=== PATIENT | female | born 1950 | race Caucasian/White ===

== ENCOUNTER → 2016-12-30 | Outpatient (CLI) | payer BC ==
[~2016-12-30] MED LIST: ASCO500T16 PO; BND25 PO; CALC600T37; CLR10 PO; DOXY100T; DVN80125; GLUC500C4; MULTTAB58 PO; RANI300T2 PO; TRAM37.52 PO
--- NOTE | 2016-12-31 06:10 | PAP/PSG TECHNICIAN REPORT ---
[facility] Home Weatherizing Worker Polysomnogram Report Study name: None Report date: 12/31/2016 Study date: 12/30/2016 Referring Physician: DR. Minoo MILNER Name: JOSÉ MANUEL WALKER Interpreting Physician: Efrain Antoine M.D. Date of : 1950 Home Weatherizing Worker: Caroline Mancuso RPSGT. Sex: Female Age: 66 Study Type: PSG Weight: 211 lbs Height: 66 years, Height 5' 5" BMI: 35.11 Medications: VALSARTAN-HCTZ 320/25 MG, LORATADINE 10 MG, VIT C, SELENIUM 200 MCG, CENTRUM SILVER, RANITIDINE 150 MG, BENEDRYL, TRIAMCINOLONE ACETONIDE 0.1% Patient History 66 yr-old female here for a baseline/split study. She has had previous sleep testing. She was found to be positive for PERLA and was placed on CPAP treatment. She then experienced weight loss and stopped using the CPAP machine. She has since then gained weight back and is experiencing snoring, insomnia, and frequent awakenings. Her [place] scale is 2. The test was started on room air. ETCO2 testing was not utilized during this study. Room 1 Parameters Monitored NPSG: E1-M2, E2-M1, Fp1-M2, Fp2-M1, F3-M2, F4-M2, F4-M1, C3-M2, C4-M2, C4-M1, O1-M2, O2-M2, O2-M1, T3-M2, T4-M1, P3-M2, P4-M1, CHIN1, CHIN2, HR, EKG, Legs, PFLOW, SNOR, FLOW, CFLOW, Tidal Volume, THOR, ABDO, SpO2, PLTH, CPRESS, ETCO2 Wave, ETCO2, pH Sleep Architecture Sleep Stages Time at Lights Off 10:46:11 PM STAGES Time (min.) TST (%) Time at Lights On 5:36:11 AM Wake 107.5 -- Total Recording Time (TRT) 410.00 min. N1 69.0 23 Total Sleep Period (TSP) 364.5 min. N2 158.5 52 Total Sleep Time (TST) 302.5min. N3 39.5 13 Awake Time 107.5 min. REM 35.5 12 Wake after Sleep Onset 62.0 min. Sleep Efficiency (SE) 74 % Sleep Onset Latency (LUZ) 45.5 min. Number of Stage 1 Shifts None Awakenings 42 Stage Changes 128 Number of REM periods 1 REM 35.5 12 REM Latency 302.0 min. NREM 267.0 88 Body Position Analysis Supine Right Left Side Prone Vertical Total Sleep Time (min.) 51.6 119.8 172.7 292.50 0.0 0.0 Total Sleep Time (%) 3% 40% 57% 97 0% N/A% Total Sleep Time REM (min.) 0.0 0.0 35.5 None 0.0 0.0 Total Sleep Time NREM (min.) 10.0 119.8 137.2 None 0.0 0.0 Intermittent Wake (min.) 41.6 28.9 37.0 None 0.0 0.0 Total Sleep Period (%) 4% None None None None None Arousals Myoclonus (PLM) * Events Count Index Events Count Index Spontaneous 87 17 Events Awake (PLMW) 70 39.1 Respiratory 34 7.9 Events Asleep w/ Arousal (PLMA) 1 0.2 PLM 1 0 Events Asleep w/o Arousal (PLMS) 21 4.2 Snoring 15 3 Total Asleep 22 4.4 Total 137 27 Total 92 13 Respiratory Analysis * CA OA MA CH H RERA Total Count 0 7 0 0 61 4 68 Index 0.0 1.4 0.0 0 12.1 1 14.3 Mean Duration 0.0 15.3 0.0 0.00 16.2 17.9 16.2 Longest Duration 0.0 22.3 0.0 0.00 0.0 20.1 32.1 Respiratory Event Summary Total Supine ~Supine Right Left Prone REM NREM Apneas Count 7 3 4 1 3 N/A 0 7 Index 1.4 18 1 0.5 1.0 N/A 0 2 Hypopneas (4% Desat) Count 61 1 60 19 41 N/A 7 54 Index 12.1 6.0 12 9.5 14.2 N/A 11.8 12.1 Apneas & All Hypopneas Count 68 4 64 20 44 N/A 7 61 Index 13.5 24 13 10 15 N/A 11.8 13.7 Respiratory Events ([employer]+All Hyp+RERA) Count 68 5 67 20 47 N/A 7 61 Index 14.3 30 14 10.0 16.3 N/A 13.5 14.4 Respiratory Related Arousal Count 34 5 35 14 21 N/A 1 39 Index 7.9 30 7 7 7 N/A 2 9 Snoring Analysis Supine Right Left Prone REM NREM Total Snore duration 47.4 min Snores count 41 415 1,058 N/A 303 1,211 1,514 Snore mean duration 1.9 Sec Snores index 246 208 367 N/A 512.1 272.1 300.3 TST with snoring (%) 15.7% Desaturation Event Summary: Minimum %SpO2 Event Count Mean/Min/Max Duration(sec.) Desaturation Index % Time In Bed > 90 115 23.6 / 6.5 / 59.5 17.4 98.1 86 - 90 1 11.0 / 11.0 / 11.0 8.3 1.8 81 - 85 1 19.0 / 19.0 / 19.0 271.7 0.1 76 - 80 0 N/A 0.0 0.0 71 - 75 1 19.0 / 19.0 / 19.0 351.2 0.0 66 - 70 0 N/A 0.0 0.0 61 - 65 0 N/A 0.0 0.0 56 - 60 0 N/A 0.0 0.0 51 - 55 0 N/A 0.0 0.0 < 50 0 N/A 0.0 0.0 Total REM NREM Awake <50% 0.0 min. 0.0 min. 0.0 min. 0.0 min. 51 - 60% 0.0 min. 0.0 min. 0.0 min. 0.0 min. 61 - 70% 0.0 min. 0.0 min. 0.0 min. 0.0 min. 71 - 80% 0.2 min. 0.0 min. 0.0 min. 0.2 min. 81 - 90% 7.4 min. 0.7 min. 4.2 min. 2.5 min. 91 - 100% 397.3 min. 34.8 min. 262.8 min. 99.7 min. Average 94 95 94 94 Minimum SpO2 75 84 88 75 Desaturation Event Index 17.0 13.5 16.4 23.4 # Desat. Events below 89% 8 1 4 3 Time(%) with Saturation below 89% 0.3 0.1 0.1 0.2 Time(min.) with Saturation below 89% 1.3 0.4 0.3 0.6 Time (mins) REM (mins) NREM (mins) % of TST SpO2 Below 90% 33 1 N32 0.6 SpO2 Below 88% 1 0 0 0 Heart Rate Analysis Min (bpm) Max (bpm) Average (bpm) Awake 52 86 70 NREM 51 82 63 REM 50 67 57 Overall 50 82 62 Supplemental O2 Values Minimum O2 level: None Value Start Time End Time Home Weatherizing Worker Comments Ms. Walker slept in the right, left, and supine positions. No cardiac arrhythmias or PLMs were noted. No bruxism noted. Snoring was noted and scored as a 3 on a scale of 1 through 5. (0=no snoring, 5=snoring loud enough to be heard through a closed door or down the gross way) She did not meet specific Split-Night criteria during the diagnostic portion of this study. She awoke to use the restroom one time during the night. Ms. Walker stated that she slept poorly. The final report will be interpreted and signed by a sleep physician. The completed physician report will then be placed in the patient medical record. Therapy (cm H2O) 0 TIB (min.) 410.0 TST (min.) 302.5 Sleep Onset (min.) 45.5 REM Onset From Sleep (min.) 302.0 Sleep Efficiency % 74 Wakefulness (%) 26 Wakefulness (min.) 107.5 NREM 1 (%) 23 NREM 1 (min.) 69.0 NREM 2 (%) 52 NREM 2 (min.) 158.5 NREM 3 (%) 13 NREM 3 (min.) 39.5 REM (%) 12 REM (min.) 35.5 # Arousals 137 Arousal Index 27 # Snore 1,514 Snore Index 300.3 AHI 13.5 AHI Supine 24 AHI Non-Supine 13 NREM AHI 13.7 REM AHI 11.8 RDI 14.3 # Obstructive Apnea 7 # Central Apnea 0 # Mixed Apnea 0 # Hypopneas 61 RERAs 4 Total Respiratory Events 72 Time Below SpO2 89% (min.) 0.7 Mean NREM SpO2 (%) 94 Mean REM SpO2 (%) 95 Mean Sleep SpO2 (%) 94 Min NREM SpO2 (%) 88 Min REM SpO2 (%) 84 Position Supine (min.) 51.6 Position Non-supine (min.) 292.5 LM Index Sleep 4.4 LM Index NREM 4.9 LM Index REM 0.0 Mean Heart Rate (bpm) 62 Min Heart Rate (bpm) 50
--- NOTE | 2017-01-03 22:49 | POLYSOMNOGRAPH REPORT ---
CLINICAL DATA: A 66-year-old female with a BMI of 35.11, referred by Dr. Vaughn Mac for a possible split night study. She had a previous sleep study which showed sleep apnea and she was on CPAP. She then experienced weight loss and stopped using the CPAP. She has now gained some weight back and is having snoring, insomnia and frequent awakenings. SLEEP ARCHITECTURE: Total sleep period was 364.5 minutes. Total sleep time was 302.5 minutes, divided between 267 minutes of non-REM sleep and 35.5 minutes of REM sleep. Sleep onset latency was delayed at 45.5 minutes. REM latency was markedly delayed at 302 minutes. Sleep efficiency was 74%. Wake after sleep onset was 62 minutes. Sleep consisted of stage N1 23%, N2 53%, N3 13%, REM 12%. AROUSAL DATA: 137 arousals were recorded for an index of 27 per hour. PLM DATA: 22 limb movements during sleep were noted for an index of 4.4 per hour with arousal index of 0.2 per hour. RESPIRATORY DATA: Mild sleep apnea/hypopnea was noted. The AHI was 13.5. There were 7 obstructive apneic episodes. The longest duration of apnea was 22.3 seconds. There were 61 hypopneic episodes. The mean duration of hypopnea was 16.2 seconds. OXIMETRY DATA: Mild nocturnal hypoxemia was seen. The oxygen arnoldo was 84%. Mean saturation 94%. Time below 88% was 1 minute HEART RATE DATA: Heart rates ranged from 51-82 beats per minute. No arrhythmia was noted. COMFORT FILLER'S COMMENTS: The patient slept in the right, left, and supine positions. Snoring was moderate, rated 3 on a scale of 1-5. She did not meet split night criteria during the diagnostic portion of the study. IMPRESSION: Obstructive sleep apnea/hypopnea with an AHI of 13.5 with transient nocturnal hypoxemia. RECOMMENDATIONS: The patient may benefit from the use of CPAP or the use of an oral appliance. Clinical correlation is needed. LEXIS
== END | disposition home or self-care (01) ==
LOC: C.NEUR 21:00
PROVIDERS: ATTEND Internal Medicine
DX: G47.33 Obstructive sleep apnea (adult) (pediatric) (principal)

== ENCOUNTER → 2017-03-02 | Outpatient (CLI) | payer BC ==
[~2017-03-02] MED LIST changes: -BND25 PO; +DIPH25CA5 PO
== END | disposition home or self-care (01) ==
LOC: C.PAPS 14:48
PROVIDERS: ATTEND Physician Assistant
DX: Z01.419 Encounter for gynecological examination (general) (routine) without abnormal findings (principal)

== ENCOUNTER → 2017-03-19 | Outpatient (CLI) | payer BC ==
[2017-03-19 17:21] LABS: LYME DISEASE AB IGG NEG (NEG); LYME DISEASE AB IGM NEG (NEG)
== END | disposition home or self-care (01) ==
LOC: C.LABPBG 13:23
PROVIDERS: ATTEND Physician Assistant
DX: S40.261A Insect bite (nonvenomous) of right shoulder, initial encounter (principal); W57.XXXA Bitten or stung by nonvenomous insect and other nonvenomous arthropods, initial encounter

== ENCOUNTER → 2017-07-13 | Outpatient (CLI) | payer BC ==
[~2017-07-13] VITALS: Ht 160 cm; Wt 99.7 kg
[~2017-07-13] MED LIST changes: +BND25 PO; -DIPH25CA5 PO
[2017-07-13 12:41] VITALS: BP 130/83; PULSE 77; Ht 160 cm; Wt 99.7 kg
== END | disposition home or self-care (01) ==
LOC: C.NEUR 12:00
PROVIDERS: ATTEND Internal Medicine Pulmonary Disease
DX: G47.33 Obstructive sleep apnea (adult) (pediatric) (principal); G47.50 Parasomnia, unspecified

== ENCOUNTER → 2017-09-28 | Outpatient (CLI) | payer OTHER ==
[~2017-09-28] VITALS: Ht 160 cm; Wt 97.1 kg
[~2017-09-28] MED LIST changes: -BND25 PO; +DIPH25CA5 PO
[2017-09-28 15:14] VITALS: BP 122/73; PULSE 86; Ht 160 cm; Wt 97.1 kg
== END | disposition home or self-care (01) ==
LOC: C.NEUR 13:18
PROVIDERS: ATTEND Physician Assistant Medical
DX: G47.33 Obstructive sleep apnea (adult) (pediatric) (principal); G47.50 Parasomnia, unspecified

== ENCOUNTER → 2017-11-12 | Outpatient (CLI) | payer OTHER ==
[2017-11-12 16:58] LABS: BASO % 0.8 %; BASO ABS # 0.04 K/uL (0-0.2); EOS % 2.3 %; EOS ABS # 0.12 K/uL (0-0.5); HEMATOCRIT 41.6 % (37-47); HEMOGLOBIN 14.3 g/dL (12.0-16.0); IG# 0.01 K/uL (0.00-0.02); LYMPH % 36.8 %; LYMPH ABS # 1.93 K/uL (1.2-3.4); MEAN CELL VOLUME 91.2 fL (80-100); MEAN CORPUSCULAR HEMOGLOBIN 31.4 pg (25-34); MEAN CORPUSCULAR HGB CONC 34.4 g/dl (32-36); MEAN PLATELET VOLUME 12.5 fL (7.4-10.4); MONO % 6.3 %; MONO ABS # 0.33 K/uL (0.11-0.59); NEUT % 53.6 %; NEUT ABS # 2.82 K/uL (1.4-6.5); PLATELET COUNT 147 K/uL (130-400); RED CELL DISTRIBUTION WIDTH CV 13.2 % (11.5-14.5); RED CELL DISTRIBUTION WIDTH SD 43.6 fL (36.4-46.3); WHITE BLOOD COUNT 5.25 K/uL (4.8-10.8)
[2017-11-12 17:17] LABS: ALBUMIN 3.6 gm/dl (3.4-5.0); ALT/SGPT 17 U/L (12-78); BLOOD UREA NITROGEN 25 mg/dl (7-18); CALCIUM 9.1 mg/dl (8.5-10.1); CARBON DIOXIDE 26 mmol/L (21-32); CHOLESTEROL 230 mg/dl (0-200); CREATININE 0.88 mg/dl (0.60-1.20); GLUCOSE 91 mg/dl (70-99); POTASSIUM 3.9 mmol/L (3.5-5.1); SODIUM 137 mmol/L (136-145)
[2017-11-12 17:27] LABS: ALKALINE PHOSPHATASE 47 U/L (45-117); AST/SGOT 15 U/L (15-37); LDL CHOLESTEROL CALCULATED 147 mg/dl; TOTAL PROTEIN 6.9 gm/dl (6.4-8.2)
[2017-11-13 07:17] LABS: HEMOGLOBIN A1C 5.3 % (4.5-5.6)
== END | disposition home or self-care (01) ==
LOC: C.LABPBG 12:17
PROVIDERS: ATTEND Internal Medicine
DX: Z78.0 Asymptomatic menopausal state (principal)

== ENCOUNTER → 2018-02-15 | Outpatient (CLI) | payer OTHER ==
[~2018-02-15] VITALS: Ht 160 cm; Wt 98.9 kg
[2018-02-15 14:59] VITALS: BP 143/80; PULSE 77; Ht 160 cm; Wt 98.9 kg
== END | disposition home or self-care (01) ==
LOC: C.NEUR 13:48
PROVIDERS: ATTEND Internal Medicine Pulmonary Disease
DX: G47.33 Obstructive sleep apnea (adult) (pediatric) (principal); G47.50 Parasomnia, unspecified; R05 Cough; J20.9 Acute bronchitis, unspecified